=== PATIENT | female | born 1985 | race Caucasian/White ===

== ENCOUNTER 2017-10-15 17:08 | Emergency (ER) | payer OTHER ==
[2017-10-15 17:22] VITALS: O2SAT 98
--- NOTE | 2017-10-15 17:54 | RAD ---
EXAM DESCRIPTION: Foot,Right 3 Views CLINICAL HISTORY: injury, discomfort COMPARISON: None. TECHNIQUE: 3 views right FINDINGS: I see no bone joint or soft tissue abnormality. IMPRESSION: Normal right foot. Electronically signed by: Khanh Levi MD 10/15/2017 5:53 PM CDT
[2017-10-15] MEDS ORDERED: KETOROLAC TROMETHAMINE INJ 60 MG/2 ML VIAL IM ONE ×2 (18:37→18:38)
--- NOTE | 2017-10-15 18:40 | ED.PDOC ---
History of Present Illness - General Chief Complaint: Lower Extremity Injury Stated Complaint: R foot discomfort Time Seen by Provider: 10/15/17 18:29 Source: patient Exam Limitations: no limitations - History of Present Illness Initial Comments: FELL DOWN STAIRS AT HOME, R FOOT HIT FLOOR AND HURTS. NO HEAD INJURY. NO LOC. Occurred: just prior to arrival Pain - Lower Extremity: severe: Right Foot Method of Injury: fell, twisted Improving Factors: immobilization Worsening Factors: movement Allergies/Adverse Reactions: Allergies Penicillins Allergy (Verified 08/11/14 11:56) Home Medications: Ambulatory Orders Cephalexin Monohydrate [Keflex] 500 mg PO TID 09/04/14 Naproxen [Naprosyn] 500 mg PO BID #20 tab 09/04/14 Review of Systems - Review of Systems Constitutional: States: no symptoms reported EENTM: States: no symptoms reported Respiratory: States: no symptoms reported Cardiology: States: no symptoms reported Gastrointestinal/Abdominal: States: no symptoms reported Genitourinary: States: no symptoms reported Musculoskeletal: States: see HPI, other - PAIN R DORSUM OF MID/HIND FOOT Skin: States: no symptoms reported Neurological: States: no symptoms reported Endocrine: States: no symptoms reported Hematologic/Lymphatic: States: no symptoms reported All other Systems: Reviewed and Negative Past Medical History (General) - Patient Medical History Hx Stroke: No Hx Congestive Heart Failure: No Hx Diabetes: No - Vaccination History Hx Tetanus, Diphtheria Vaccination: Yes Hx Influenza Vaccination: Yes - 2013 - Social History Hx Tobacco Use: Yes Hx Alcohol Use: Yes - Female History Patient : No Family Medical History - Family History Mother Family History: No Known Living Status: Still Living Hx Family;Other: thyroid Physical Exam - Physical Exam General Appearance: Alert, Obese Eyes, Ears, Nose, Throat: PERRL/EOMI, normal ENT inspection Neck: full range of motion, normal inspection Cardiovascular/Respiratory: regular rate, rhythm, no M/R/G Gastrointestinal/Abdominal: non-tender, no organomegaly Back: normal inspection, no CVA tenderness Thigh/Hip: normal inspection, no evidence of injury Leg: normal ROM, other - L ANTERIOR LEG SMALL, FAINT ECCHYMOSIS. Knee: normal inspection, no evidence of injury Ankle: limited ROM Foot: bone tenderness, limited ROM, soft tissue tenderness, swelling, other - R FOOT PAIN W/ FLEX/EXT AT ATFL (SPRAIN). ANTALGIC GAIT. Neuro/Tendon: normal sensation, normal motor functions, responds to pain Mental Status: alert, oriented x 3 Skin: normal color, warm/dry Progress - Progress Progress: 10/15/17 18:44 R FOOT XRAY NEG. ATFL LIGAMENT STRAIN. GAVE TORADOL SHOT. SPLINT GIVEN. RICE. Departure - Departure Clinical Impression: Sprain of right ankle or foot, Right foot pain Disposition: Discharge to Home or Self Care Condition: Good Departure Forms: ED Discharge - Pt. Copy, Patient Portal Self Enrollment Instructions: Ankle Sprain Diet: resume usual diet Activity: increase activity as tolerated Referrals: Alfa Saucedo MD [Primary Care Provider] - 1-2 Weeks Home Medications: Ambulatory Orders Cephalexin Monohydrate [Keflex] 500 mg PO TID 09/04/14 Naproxen [Naprosyn] 500 mg PO BID #20 tab 09/04/14
[2017-10-15 19:05] VITALS: TEMP 98
== END 2017-10-15 19:00 | disposition home or self-care (01) ==
LOC: ER 17:08
DX: S93.601A Unspecified sprain of right foot, initial encounter (principal); S80.12XA Contusion of left lower leg, initial encounter; Z88.0 Allergy status to penicillin; Z87.891 Personal history of nicotine dependence; Y92.009 Unspecified place in unspecified non-institutional (private) residence as the place of occurrence of the external cause; W10.9XXA Fall (on) (from) unspecified stairs and steps, initial encounter
CPT/HCPCS: 73630; J1885

== ENCOUNTER → 2017-11-07 | Outpatient (CLI) | payer OTHER | LOC: LAB.O 16:23 | PROVIDERS: ATTEND Internal Medicine | DX: M06.9 Rheumatoid arthritis, unspecified (principal) ==

== ENCOUNTER → 2018-02-28 | Outpatient (CLI) | payer MEDICAID ==
--- NOTE | 2018-02-28 11:51 | RAD ---
EXAM DESCRIPTION: Tibia/Fibula,Left CLINICAL HISTORY: 32 years Female, PAIN IN LFT LOWER LIMB COMPARISON: None. FINDINGS: The bony details are obscured by the overlying cast. A minimally displaced spiral fracture of the distal fibula/lateral malleolus is noted with probable intra-articular extension, better delineated on lateral projection. The overlying soft tissues appear unremarkable. IMPRESSION: 1. Minimally displaced spiral fracture of the distal fibula with probable intra-articular extension. Electronically signed by: Jt Gurrola MD 02/28/2018 11:49 AM [facility]
--- NOTE | 2018-02-28 11:57 | RAD ---
EXAM DESCRIPTION: Ankle,Left 3 Views CLINICAL HISTORY: 32 years Female, PAIN IN LEFT ANKLE COMPARISON: None available. TECHNIQUE: AP, oblique and lateral radiographs. FINDINGS: The visualized bones appear well mineralized. Minimally displaced lateral malleolus spiral fracture with intra-articular extension. Mild widening of medial clear space noted. Soft tissue swelling noted surrounding the ankle joint. IMPRESSION: 1. Minimally displaced lateral malleolus spiral fracture with intra-articular extension. Mild widening of the medial clear space noted. Soft tissue swelling around the ankle joint. Electronically signed by: Jt Gurrola MD 02/28/2018 11:55 AM [facility]
== END ==
LOC: RAD 08:49
PROVIDERS: ATTEND Orthopaedic Surgery
DX: S82.62XA Displaced fracture of lateral malleolus of left fibula, initial encounter for closed fracture (principal)

== ENCOUNTER → 2018-03-17 | Outpatient (CLI) | payer MEDICAID ==
--- NOTE | 2018-03-17 09:23 | RAD ---
EXAM DESCRIPTION: Ankle,Left 3 x-ray Views CLINICAL HISTORY: 32 years, Female, FX DISTAL FIBULA COMPARISON: Previous study February 28, 2018 TECHNIQUE: AP/lateral/oblique casted views of the left ankle FINDINGS: Intact medial malleolus. Oblique fracture through the lateral malleolus is seen extending into the ankle joint. 2 mm gap at the fracture site appears stable. No significant anterior-posterior displacement. There is mild soft tissue swelling laterally and medially. Intact proximal metatarsals. Intact dome of the talus. Lateral view shows no evidence of fracture of the body of the talus or calcaneus. Mild dorsal and plantar calcaneal spurring is seen. No ankle joint narrowing, spurring or effusion. IMPRESSION: Fractured left lateral malleolus with stable alignment of casted views. Electronically signed by: Zoltan Salmeron MD 03/17/2018 9:22 AM [facility]
== END ==
LOC: RAD 07:52
PROVIDERS: ATTEND Orthopaedic Surgery
DX: S82.832D Other fracture of upper and lower end of left fibula, subsequent encounter for closed fracture with routine healing (principal)

== ENCOUNTER → 2018-03-31 | Outpatient (CLI) | payer OTHER ==
--- NOTE | 2018-03-31 10:21 | RAD ---
EXAM DESCRIPTION: Ankle,Left 3 x-ray Views CLINICAL HISTORY: 32 years, Female, OTHER FACTURE OF UPPER AND LOWER END OF LEFT FIBULA COMPARISON: Previous casted views March 17, 2018 TECHNIQUE: AP/lateral/oblique of the left ankle FINDINGS: Intact medial malleolus. Oblique fracture through the lateral malleolus this extends into the ankle joint. There is mild soft tissue swelling laterally. No change in alignment since previous study. The cast has been removed. Minimal bridging callus slightly obscures the fracture line. Intact proximal metatarsals. Intact dome of the talus. Lateral view shows no evidence of fracture of the body of the talus or calcaneus. Mild dorsal and plantar calcaneal spurring is seen. IMPRESSION: Fractured lateral malleolus. No change in alignment. Electronically signed by: Zoltan Salmeron MD 03/31/2018 10:19 AM [facility]
== END ==
LOC: RAD 09:23
PROVIDERS: ATTEND Orthopaedic Surgery
DX: S82.832D Other fracture of upper and lower end of left fibula, subsequent encounter for closed fracture with routine healing (principal)

== ENCOUNTER → 2018-05-01 | Outpatient (CLI) | payer OTHER ==
--- NOTE | 2018-05-01 10:25 | RAD ---
EXAM DESCRIPTION: Ankle,Left 3 Views CLINICAL HISTORY: 32 years, Female, CLOSED FX OF DISTAL FIBULA COMPARISON: Previous study March 31, 2018 TECHNIQUE: AP/lateral/oblique of the left ankle FINDINGS: Oblique fracture through the lateral malleolus is again noted unchanged in alignment. No change since previous study. There is moderate soft tissue swelling laterally more than medially. Intact proximal metatarsals. Intact dome of the talus. Lateral view shows no evidence of fracture of the body of the talus or calcaneus. Mild plantar and dorsal calcaneal spurring is seen. IMPRESSION: Fractured distal left fibula unchanged in alignment. Electronically signed by: Zoltan Salmeron MD 05/01/2018 10:24 AM [facility]
== END ==
LOC: RAD 09:42
PROVIDERS: ATTEND Orthopaedic Surgery
DX: S82.832D Other fracture of upper and lower end of left fibula, subsequent encounter for closed fracture with routine healing (principal)